=== PATIENT | male | born 1945 | race Caucasian/White ===

== ENCOUNTER → 2018-04-20 | Day surgery (SDC) | payer MEDICARE ==
[2018-04-19 08:38] VITALS: BMI 27.1
[~2018-04-20] MED LIST: Lidocaine 1% PF 5 ML VIAL ONE; Metoprolol Tartrate 5 MG/5 ML VIAL ONE; PROPOFOL 200 MG/20 ML VIAL ONE
--- NOTE | 2018-04-20 08:47 | DIS ---
DATE OF PROCEDURE/HOSPITAL VISIT: (Which is an outpatient) 04/20/2018 ADMISSION DIAGNOSES: 1. Paroxysmal atrial fibrillation, which became chronic with implantation of a Watchman device in th e left atrial appendage. 2. His other diagnoses include history of esophageal bleeds. 3. Hypertension. DISCHARGE DIAGNOSES: 1. Paroxysmal atrial fibrillation, which became chronic with implantation of a Watchman device in th e left atrial appendage. 2. His other diagnoses include history of esophageal bleeds. 3. Hypertension. PROCEDURES IN HOSPITAL: Transesophageal echocardiogram. DISCHARGE MEDICATIONS: Multaq 400 mg b.i.d., Eliquis 5 mg b.i.d., atorvastatin 20 mg a day, Flomax 0 .4 mg daily, metoprolol ER 50 mg half tablet b.i.d., aspirin 81 mg a day, Chantix 1 mg a day, iron lux pplementations twice a day, digoxin 0.125 mg every other day. FOLLOWUP: His followup will be with me in the office in about 1 month. 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 HOSPITAL COURSE: This is a very pleasant 72-year-old gentleman who has a history of atrial fibrillat ion, GI bleeding, underwent a Watchman device implantation and was advised to undergo a transesophage al echocardiogram to ensure that there was no evidence of a yessenia-structural leak and also to evaluate for any other possible abnormalities. He was in the recovery area as an outpatient and underwent sh ort acting propofol, the transesophageal probe was passed. The device was well-seated. There were n o yessenia-device leak around the Watchman. Ejection fraction is 50-55%. He did have mild mitral valve regurgitation, trace to mild tricuspid valve regurgitation, trivial aortic valve regurgitation with l eft atrial dilatation. There were no other significant abnormalities noted. The patient tolerated the procedure well. 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
--- NOTE | 2018-04-20 14:02 | ECHO ---
CARDIOLOGY PROCEDURE NOTE: Date: 04/20/18 PROCEDURE: Transesophageal echocardiogram. INDICATION FOR PROCEDURE: This is a 72-year-old patient who has a history of atrial fibrillation which was recurrent. He has be en placed on medications, as well as anticoagulation, and continued evidence of atrial fibrillation. He underwent implantation of a Watchman device. He is being seen today for a transesophageal echocard iogram to determine if the Watchman device is well seated and whether or not there are any peridevice leaks. DETAILS OF PROCEDURE: He was taken to the recovery area where he underwent short acting propofol. The transesophageal probe was easily placed down the esophagus. IMPRESSION: 1. No evidence of leaks around the Watchman device, which is well seated in the left atrial Appendag e: 2. Normal left ventricular systolic function, ejection fraction 55-60%. 3. Mild mitral valve regurgitation. 4. Trace tricuspid valve regurgitation. 5. Trivial aortic valve regurgitation. 6. Normal valvular structures. 7. Left atrial dilatation. 8. There were no complications or difficulties encountered.
== END ==
LOC: CCL 06:15
PROVIDERS: ATTEND Internal Medicine Cardiovascular Disease
PROC: B24BZZ4 Ultrasonography of Heart with Aorta, Transesophageal (ICD-10-PCS; principal; 2018-04-20)
DX: I48.0 Paroxysmal atrial fibrillation (principal); I10 Essential (primary) hypertension; K21.9 Gastro-esophageal reflux disease without esophagitis; N40.0 Benign prostatic hyperplasia without lower urinary tract symptoms; I34.0 Nonrheumatic mitral (valve) insufficiency; Z95.818 Presence of other cardiac implants and grafts; Z79.82 Long term (current) use of aspirin; Z79.01 Long term (current) use of anticoagulants; Z79.899 Other long term (current) drug therapy
CPT/HCPCS: 93312; J2001

== ENCOUNTER 2018-06-08 05:49 | Day surgery (SDC) | payer MEDICARE ==
[2018-06-07 12:33] VITALS: BMI 27.1
[2018-06-08] MEDS ORDERED: Lidocaine 1% (PF) 30 ML VIAL ONE (06:55)
[2018-06-08 06:59] LABS: Anion Gap 17 mmol/L (10-20); BUN (Urea Nitrogen) 18 mg/dL (8.4-25.7); Calc. Creatinine Clearance 71 mL/min (70-130); Calcium 9.5 mg/dL (7.8-10.44); Carbon Dioxide 23 mmol/L (23-31); Chloride 103 mmol/L (98-107); Estimated GFR-MDRD 57; Glucose 100 mg/dL (80-115); Potassium 4.2 mmol/L (3.5-5.1); Sodium 139 mmol/L (136-145)
--- NOTE | 2018-06-08 07:47 | OP ---
DATE OF PROCEDURE: 06/08/2018 PROCEDURE: Aortogram, bilateral lower extremity runoff. SURGEON: Jeremie Cheema M.D. LEGAL OFFICER: Local. CONTRAST: 48 mL. FLUOROSCOPY: 5.5 minutes. PERTINENT POSITIVE FINDINGS: The patient had a heavily calcified right common femoral artery with ab out a 70% stenosis and a proximal 2 cm of the superficial femoral artery was heavily calcified and lux btotally occluded. Superficial femoral artery was widely patent through the level of the adductor ca nal. The popliteal artery had a subtotal occlusion over about 2.5 cm from calcified plaque proximal to the knee joint. The anterior tibial was the dominant vessel runoff to the ankle with the posterio r tibial being small and occluded proximally. It then reconstituted and filled slowly down the leg. The peroneal artery was small. The left lower extremity demonstrated a patent superficial femoral, popliteal, and tibial vessels with mild disease. PROCEDURE IN DETAIL: After prepping and draping using lidocaine in the left groin, the ultrasound wa s used to guide puncture of the common femoral artery. A 5-[place]ian dilator and sheath were advanced o norm a wire. Contra catheter placed and aortogram and iliofemoral runoff obtained demonstrating no si gnificant disease, although vessels were calcified. Following this, the Contra catheter was directed over the iliac bifurcation and runoff of the right leg was obtained with the Contra catheter in the external iliac artery. Following this, the catheter was removed over a wire and runoff of the left l eg was obtained through the sheath. The patient tolerated the procedure well.
[2018-06-08] MEDS ORDERED: HYDROcodone/Acetaminophen 5/325 mg Tablet PO PRN (08:23)
[2018-06-08] MEDS ORDERED: Acetaminophen 325 MG TAB PO PRN (08:27)
[2018-06-08] MEDS ORDERED: Fentanyl 100 MCG/2 ML VIAL SLOW IVP PRN (08:28)
[2018-06-08] MEDS ORDERED: Ondansetron HCl/PF 4 MG/2 ML Vial SLOW IVP PRN (08:28)
[2018-06-08] MEDS ORDERED: Iopamidol 370 76% 50 ML VIAL FS ONE (10:41)
== END 2018-06-08 13:40 | disposition home or self-care (01) ==
LOC: CCL 05:49
PROVIDERS: ATTEND Thoracic Surgery (Cardiothoracic Vascular Surgery)
PROC: B41DYZZ Fluoroscopy of Aorta and Bilateral Lower Extremity Arteries using Other Contrast (ICD-10-PCS; principal; 2018-06-08)
DX: I70.213 Atherosclerosis of native arteries of extremities with intermittent claudication, bilateral legs (principal); I12.9 Hypertensive chronic kidney disease with stage 1 through stage 4 chronic kidney disease, or unspecified chronic kidney disease; N18.4 Chronic kidney disease, stage 4 (severe); D63.1 Anemia in chronic kidney disease; I48.91 Unspecified atrial fibrillation; F17.210 Nicotine dependence, cigarettes, uncomplicated; Z79.899 Other long term (current) drug therapy; Z79.01 Long term (current) use of anticoagulants; Z79.82 Long term (current) use of aspirin
CPT/HCPCS: 36246; 36247; 75716; 76942; 80048; C1769; J1644; J2001

== ENCOUNTER 2018-06-27 10:04 | Outpatient (CLI) | payer MEDICARE ==
[2018-06-27 11:19] LABS: Hemoglobin 13.7 g/dL (14.0-18.0); Mean Corpuscular HGB CONC 34.8 g/dL (32.0-36.0); Mean Corpuscular Hemoglobin 37.1 pg (27.0-31.0); Mean Platelet Volume 6.6 fL (7.4-10.4); Platelet Count 241 thou/uL (130-400); RBC Distribution Width 11.6 % (11.5-14.5); Red Blood Cell (RBC) Count 3.68 mill/uL (4.70-6.10); White Blood Cell (WBC) Count 6.7 thou/uL (4.8-10.8)
[2018-06-27 11:32] LABS: Anion Gap 15 mmol/L (10-20); BUN (Urea Nitrogen) 18 mg/dL (8.4-25.7); Calc. Creatinine Clearance 0 mL/min (70-130); Calcium 10.2 mg/dL (7.8-10.44); Carbon Dioxide 28 mmol/L (23-31); Chloride 100 mmol/L (98-107); Estimated GFR-MDRD 58; Glucose 107 mg/dL (80-115); Potassium 4.5 mmol/L (3.5-5.1); Sodium 138 mmol/L (136-145)
== END 2018-06-27 10:05 | disposition home or self-care (01) ==
LOC: LABBT 10:04
PROVIDERS: ATTEND Thoracic Surgery (Cardiothoracic Vascular Surgery)
DX: Z01.812 Encounter for preprocedural laboratory examination (principal); I73.9 Peripheral vascular disease, unspecified
CPT/HCPCS: 80048; 85027; 86850; 86900; 86901

== ENCOUNTER 2018-06-27 10:15 | Inpatient (IN) | payer MEDICARE ==
[2018-06-27 10:21] VITALS: BMI 27.1
[2018-06-28] MEDS ORDERED: Heparin 5,000 UNITS/ML VIAL ONE (06:33)
[2018-06-28] MEDS ORDERED: Protamine Sulfate 50 MG/5 ML VIAL ONE (06:33)
[2018-06-28] MEDS ORDERED: Iothalamate Meglumine 60% 50 ML VIAL FS ONE (06:33)
[2018-06-28] MEDS ORDERED: CEFAZOLIN/Water 2 GM/20 ML SYRINGE ONE (07:04)
[2018-06-28] MEDS ORDERED: Fentanyl 100 MCG/2 ML VIAL ONE ×3 (07:13→10:57)
[2018-06-28] MEDS ORDERED: Bupivacaine/Epinephrine 0.25% 30 ML VIAL ONE (09:43)
--- NOTE | 2018-06-28 12:02 | OP ---
DATE OF PROCEDURE: 06/28/2018 PREOPERATIVE DIAGNOSIS: Peripheral artery disease. POSTOPERATIVE DIAGNOSIS: Peripheral artery disease. PROCEDURE: Right common superficial and profunda femoral endarterectomy with bovine patch angioplast y. SURGEON: Jeremie Cheema M.D. ANESTHESIA: General. ESTIMATED BLOOD LOSS: 150 mL. PROCEDURE IN DETAIL: After adequate anesthesia had been obtained, the patient was prepped and draped . Incision was made in the right groin, mobilizing the common femoral artery to just above the ingui nal ligament exposing the external iliac artery. Distally the profunda had a common orifice with 2 l arge branches medial and lateral and then the superficial femoral artery was mobilized for several ce ntimeters distally. Following this needle was inserted into the proximal SFA where there was a soft spot and attempts to pass a guidewire distally to evaluate and treat the distal SFA popliteal artery lesion was not possible because a Glidewire could not be negotiated through the proximal SFA. For th is reason, the patient had already been heparinized, clamps were applied to the external iliac artery x2 and superficial femoral artery and a soft spot distally. The profunda branches were controlled w ith loops and a long arteriotomy made on the common femoral artery. Endarterectomy was begun in the mid portion of the arteriotomy and then carried proximally. The plaque was removed up to the top of the arteriotomy incision in the common femoral artery and amputated there. Distally on the SFA it wa s continued down to a fairly soft spot where the plaque was removed with nice tapering. The profunda orifices were not even visible from within the lumen of the femoral artery and after endarterectomy, there was a wide lumen. Following this, an 8 cm bovine patch was opened, but was not long enough fo r the arteriotomy and 10 x 1 cm patch was then opened and used to close the arteriotomy with a runnin g 6-0 Prolene suture. Prior to completing the suture line vessels were back flushed, forward flushed and the area irrigated with heparin saline. CoSeal was used on the suture line and after about a mi nute and a half flow was then restored down the profunda branches and then the superficial femoral br anches. After this had been done, pressure was held on the incision while protamine was given to par tially reverse the heparin. The wound was then closed in layers with [id number] Vicryl sutures as well as a subcuticular suture. 0.25% Marcaine with epinephrine was instilled into the subcutaneou s tissues.
[2018-06-28] MEDS ORDERED: traMADol HCl 50 MG TAB PO PRN (13:35)
[2018-06-28] MEDS ORDERED: Ondansetron HCl/PF 4 MG/2 ML Vial IVP PRN (13:35)
[2018-06-28] MEDS ORDERED: Acetaminophen 325 MG TAB PO PRN (13:35)
[2018-06-28] MEDS ORDERED: HYDROcodone/Acetaminophen 5/325 mg Tablet PO PRN (13:35)
[2018-06-28] MEDS ORDERED: Fentanyl 100 MCG/2 ML VIAL SLOW IVP PRN ×2 (13:35)
[2018-06-28] MEDS ORDERED: Insulin Regular 300 UNITS/3 ML VIAL SC PRN (13:35)
[2018-06-28] MEDS ORDERED: hydrALAZINE 20 MG/ML VIAL SLOW IVP PRN (13:35)
[2018-06-28] MEDS ORDERED: PROPOFOL 200 MG/20 ML VIAL ONE (14:23)
[2018-06-28] MEDS ORDERED: Glycopyrrolate 0.2 MG/ML 5 ML SYRINGE ONE (14:23)
[2018-06-28] MEDS ORDERED: Vecuronium 10 MG VIAL ONE (14:23)
[2018-06-28] MEDS ORDERED: Heparin 10,000 UNITS/ 10 ML VIAL ONE (14:23)
[2018-06-28] MEDS ORDERED: ePHEDrine/0.9% NaCl/PF SYRINGE 50 mg/10 ml ONE (14:23)
[2018-06-28] MEDS ORDERED: Lidocaine 1% PF 5 ML VIAL ONE (14:23)
[2018-06-28] MEDS ORDERED: PHENYLEPHRINE-NS 100 MCG/ML 10 ML SYRINGE ONE (14:23)
[2018-06-28] MEDS ORDERED: Ondansetron HCl/PF 4 MG/2 ML Vial ONE (14:23)
[2018-06-28] MEDS ORDERED: Dexamethasone 20 MG/5 ML VIAL ONE (14:23)
[2018-06-28] MEDS: CEFAZOLIN/Water 2 GM/20 ML SYRINGE SLOW IVP SCH ×2 (15:55→22:27)
[2018-06-28] MEDS: Sodium Chloride 0.9% 1,000 ML IV SCH (15:56)
[2018-06-28] MEDS: HYDROcodone/Acetaminophen 5/325 mg Tablet PO PRN (17:43)
[2018-06-28] MEDS: Ferrous Sulfate 325 MG TAB PO SCH (20:16)
[2018-06-28] MEDS ORDERED: Tamsulosin HCl 0.4 MG CAP PO SCH (21:00)
[2018-06-29] MEDS: Sodium Chloride 0.9% 1,000 ML IV SCH (01:15)
[2018-06-29] MEDS: HYDROcodone/Acetaminophen 5/325 mg Tablet PO PRN (06:09)
[2018-06-29] MEDS: CEFAZOLIN/Water 2 GM/20 ML SYRINGE SLOW IVP SCH (06:10)
[2018-06-29 07:59] VITALS: BP 160/81; TEMP 97.7
[2018-06-29] MEDS: Ferrous Sulfate 325 MG TAB PO SCH (08:53)
[2018-06-29] MEDS ORDERED: Clopidogrel Bisulfate 75 MG TAB PO SCH (09:00)
[2018-06-29] MEDS ORDERED: Atorvastatin Calcium 20 MG TAB PO SCH (09:00)
[2018-06-29] MEDS ORDERED: Losartan 25 MG TAB PO SCH (09:00)
--- NOTE | 2018-06-29 12:38 | DIS ---
HOSPITAL COURSE: The patient was admitted on 06/28/2018, underwent extended common superficial femor al endarterectomy for critical stenosis of the profunda branches as well as the proximal SFA. Distal SFA had calcified plaque and some stenosis and it was anticipated that this would also be treated pe rcutaneously; however. It was felt that the improvement in flow proximally may well improve his symp toms no distal reconstruction was done at this time. Postoperatively, he had palpable poplitea l and dorsalis pedis pulses. He will be discharged home on his admitting medicines, which includes d ual antiplatelet therapy as well as tramadol for pain. Wound care instructions, discharge and follow up was given.
== END 2018-06-29 10:53 | disposition home or self-care (01) | DRG 253 ==
LOC: SURG A 06-28 06:10 → SURG B 06-28 13:27
PROVIDERS: ADMIT Thoracic Surgery (Cardiothoracic Vascular Surgery); ATTEND Thoracic Surgery (Cardiothoracic Vascular Surgery)
PROC: 04CK0ZZ Extirpation of Matter from Right Femoral Artery, Open Approach (ICD-10-PCS; principal; 2018-06-28)
PROC: 04UK0JZ Supplement Right Femoral Artery with Synthetic Substitute, Open Approach (ICD-10-PCS; 2018-06-28)
DX: I70.213 Atherosclerosis of native arteries of extremities with intermittent claudication, bilateral legs (principal); N18.4 Chronic kidney disease, stage 4 (severe); I48.91 Unspecified atrial fibrillation; I12.9 Hypertensive chronic kidney disease with stage 1 through stage 4 chronic kidney disease, or unspecified chronic kidney disease; D63.1 Anemia in chronic kidney disease; Z01.812 Encounter for preprocedural laboratory examination
CPT/HCPCS: 36416; 76001; 80048; 85027; 86850; 86900; 86901; C1769; G8978-GP-CI; G8979-GP-CI; G8980-GP-CI; J0360; J1100; J1642; J1644; J2001; J2405; J2704; J2720; J3010; Q9961